=== PATIENT | female | born 1955 | race Two or more races ===

== ENCOUNTER → 2017-01-31 | Outpatient (CLI) | payer OTHER ==
--- NOTE | 2017-02-05 10:14 | RAD ---
DATE: 01/31/2017. EXAM: DIGITAL DIAGNOSTIC BILATERAL HISTORY: Left breast nodules. The patient presents for follow-up. COMPARISON: 11/28/2015. This study was interpreted with the benefit of Computerized Aided Detection (CAD). FINDINGS: Both breasts are heterogeneously dense, limiting the sensitivity of mammography. The right breast is stable. No new mass is identified. There are benign calcifications on the right. The left breast also appears stable. No new mass is seen. There are benign punctate calcifications present. The axillae are unremarkable. Breast Density: HETERO The breast parenchyma is heterogeneously dense, which could reduce sensitivity of mammography. Breast parenchyma level C. Left breast ultrasound: Correlation is made with prior ultrasound from 06/19/2016. Previously noted large simple cyst at the 1:00 location of the left breast is slightly larger measuring 2.9 cm compared with 2.3 cm. There are numerous additional cysts throughout the left breast. The hypoechoic nodule at the 6:00 location of the left breast is stable at approximately 8 mm. The hypoechoic nodule at the 10:00 location is stable at 7 mm. Previously noted hypoechoic nodule at the 1:00 location is not well visualized on today's study. IMPRESSION: Stable mammogram and left breast ultrasound, as described. The patient may return to routine annual screening mammography. BI-RADS CATEGORY: 2 BENIGN FINDING(S) RECOMMENDED FOLLOW-UP: 12M 12 MONTH FOLLOW-UP PQRS compliance statement: Patient information was entered into a reminder system with a target due date 01/31/2018 for the next mammogram. Mammography is a sensitive method for finding small breast cancers, but it does not detect them all and is not a substitute for careful clinical examination. A negative mammogram does not negate a clinically suspicious finding and should not result in delay in biopsying a clinically suspicious abnormality. "Our facility is accredited by the [employer] Mammography Program." DICTATED and SIGNED BY: FLOR RENTERIA MD DATE: 01/31/17 1529 MTDD
== END | disposition home or self-care (01) ==
LOC: MAMMO 13:17
PROVIDERS: ATTEND Family Medicine
DX: N60.02 Solitary cyst of left breast (principal); N63 Unspecified lump in breast
CPT/HCPCS: 76641; G0204; 77066

== ENCOUNTER → 2019-04-09 | Outpatient (CLI) | payer OTHER ==
--- NOTE | 2019-04-09 19:29 | KCIC ---
Bilateral digital screening mammograms: Reason for examination: Routine screening. Comparison is made to previous studies dated back to 10/13/2014. Interpretation was made with the benefit of CAD. The skin and nipples show no abnormalities. No abnormal axillary lymph nodes are seen. The breast parenchyma is extremely dense. (Breast density: Category D.) There appear to be circumscribed nodules bilaterally which probably represent cysts. Recommend further evaluation with bilateral breast ultrasound. There are no suspicious calcifications seen. Impression: Dense breasts with bilateral breast nodules which probably represent cysts. Recommend further evaluation with bilateral breast ultrasound. Your patient's mammogram demonstrates that she has dense breast tissue (breast density category C or D), which could hide abnormalities, and if she has other risk factors for breast cancer that have been identified, she might benefit from supplemental screening tests that may be suggested by you as her ordering physician. Dense breast tissue, in and of itself, is a relatively common condition. Therefore, this information is not provided to cause undue concern, but rather to raise your awareness and to promote discussion with your patient regarding the presence of other risk factors, in addition to dense breast tissue. Your patient's mammography results will be sent to her. BI-RAD Category 0: Incomplete. Needs additional imaging evaluation. "Our facility is accredited by the [employer] Mammography [employer]." This patient's information has been entered into a reminder system for the patient to be notified with the results of her examination and a target date for the next mammogram. Electronically signed by: Makenzie Robbins MD (04/09/2019 4:39 PM) [id number]
== END | disposition home or self-care (01) ==
LOC: KCIC MAMMO 08:47
PROVIDERS: ATTEND Family Medicine
DX: Z12.31 Encounter for screening mammogram for malignant neoplasm of breast (principal)
CPT/HCPCS: 77067

== ENCOUNTER → 2019-04-30 | Outpatient (CLI) | payer OTHER ==
--- NOTE | 2019-04-30 16:10 | KCIC ---
Bilateral breast ultrasound: Reason for examination: Nodules seen on screening mammogram. Comparison is made to mammographic exam dated 04/09/2019 and to ultrasound examination dated 01/31/2017. Bilateral whole breast ultrasound including evaluation of all 4 quadrants and the retroareolar and axillary regions of both breasts was performed. The right breast shows presence of multiple circumscribed anechoic and hypoechoic lesions consistent with simple and complicated cysts measuring up to 2.4 cm in size. No suspicious-appearing nodules are seen. No abnormal appearing lymph nodes are seen in the axilla. The left breast also shows presence of multiple circumscribed anechoic and hypoechoic lesions consistent with simple and complicated cysts measuring up to 1.5 cm in size. No suspicious nodules are seen. No abnormal appearing lymph nodes are seen in the left axilla. IMPRESSION: Multiple small anechoic and hypoechoic circumscribed lesions consistent with simple and complicated cysts bilaterally. No suspicious abnormalities are seen. Recommend 6 month follow-up with ultrasound. BI-RADS Category 3: Probably Benign. "Our facility is accredited by the [employer] Mammography [employer]." This patient's information has been entered into a reminder system for the patient to be notified with the results of her examination and a target date for the next mammogram. Electronically signed by: Makenzie Robbins MD (04/30/2019 4:06 PM) [id number]
== END | disposition home or self-care (01) ==
LOC: KCIC US 10:18
PROVIDERS: ATTEND Family Medicine
DX: R92.8 Other abnormal and inconclusive findings on diagnostic imaging of breast (principal)
CPT/HCPCS: 76641

== ENCOUNTER → 2020-04-06 | Outpatient (CLI) | payer OTHER ==
--- NOTE | 2020-04-06 15:00 | KCIC ---
BILATERAL DIAGNOSTIC MAMMOGRAPHY AND BREAST ULTRASOUND History: Bilateral breast ultrasound 04/30/2019 recommended six-month follow-up. Patient returns now. Comparison: Bilateral screening mammogram 04/09/2019. Bilateral breast ultrasound, [id number]. Technique: Bilateral digital mammogram views were obtained. Findings: Breast Tissue Density C : The breasts are heterogeneously dense, which may obscure small masses. Bilateral glandular nodularity is similar to prior study. There are multiple masses that are probably cysts based on prior ultrasound. There are no dominant masses, suspicious microcalcifications or architectural distortion. Real-time ultrasound imaging of the right and left breast breast is performed. Right: Similar to prior study there are multiple cysts throughout the right breast. The majority of the cysts are simple. Complicated cyst at the 11:00 position 5 cm from the nipple is stable and measures on the order of 5 mm. No solid mass or architectural distortion is seen. There are no abnormal axillary lymph nodes. Left: Similar to prior study there are multiple cysts throughout the left breast. There is a mildly complicated cyst at the 1:00 position 5 cm from the nipple that is stable and measures 6 mm. No solid mass or architectural distortion is seen. There are no abnormal axillary lymph nodes. IMPRESSION: No mammographic evidence of malignancy. On ultrasound multiple predominantly simple cysts with a few complicated cysts are redemonstrated bilaterally. Recommend patient return to routine mammogram screening. BI-RADS category 2: Benign findings. The images were reviewed with computer-aided detection. Patient information is entered into the reminder system with a target due date for the next screening mammogram. Mammography is the most sensitive method for finding small breast cancers, but it does not detect them all and is not a substitute for careful clinical examination. A negative mammogram does not negate a clinically suspicious finding and should not result in delay in biopsying a clinically suspicious abnormality. "Our facility is accredited by the [employer] Mammography [employer]." Electronically signed by: Joe Solorio MD (04/06/2020 2:57 PM) [facility]
== END | disposition home or self-care (01) ==
LOC: KCIC MAMMO 13:07
PROVIDERS: ATTEND Family Medicine
DX: N60.02 Solitary cyst of left breast (principal); N60.01 Solitary cyst of right breast
CPT/HCPCS: 76641; 77066